=== PATIENT | male | born 1995 | race Caucasian/White ===

== ENCOUNTER 2016-07-16 13:34 | Emergency (ER) | payer OTHER ==
[2016-07-16] MEDS ORDERED: KETOROLAC 30 MG/1 ML SDV IVP ONE (13:39)
[2016-07-16] MEDS ORDERED: DEXAMETHASONE 10 MG/ML VIAL IVP ONE (13:39)
--- NOTE | 2016-07-16 13:39 | EDPHY ---
H & P Constitutional: Initial Vital Signs Temperature (C) 37.3 C 07/16/16 13:39 Heart Rate 94 07/16/16 13:39 Respiratory Rate 18 07/16/16 13:39 Blood Pressure 115/53 L 07/16/16 13:39 O2 Sat (%) 100 07/16/16 13:39 O2 Delivery Mode Room Air Allergies/Adverse Reactions: No Known Allergies Allergy (Verified 01/18/15 20:29) Home Medications: Medication Instructions Recorded Hydrocodone/APAP 5/325 [[place] 1 each PO Q4-6PRN PRN #15 tab 12/26/14 5/325 (*)] Cephalexin [Keflex (RX)] 500 mg PO TID #30 cap 07/16/16 Medical Decision Making ED Course/Re-evaluation: CHIEF COMPLAINT: Sore throat, cough. HISTORY OF PRESENT ILLNESS: The patient is a 21-year-old male who presents via EMS for sore throat since yesterday. He admits associated cough and vomiting. He describes an episode of near-syncope today but did not lose consciousness and did not hit his head. He denies fever, shortness of breath, or other complaints at this time. REVIEW OF SYSTEMS: A 10 point review of systems was performed and is negative with the exception of the elements mentioned in the history of present illness. PHYSICAL EXAM: HR, BP, O2 Sat, RR. Temp noted General Appearance: Alert, well hydrated, appropriate, and non-toxic appearing. Head: Atraumatic without scalp tenderness or obvious injury Eyes: Pupils equal, round, reactive to light and accommodation, EOMI, no trauma , no injection. Ears: Clear bilaterally, no perforation, normal landmarks Nose: Atraumatic, no rhinorrhea, clear. Throat: There are no lesions, normal tonsils, mucus membranes moist. Throat is severely erythematous. Neck: Supple, 2+ carotid upstroke, nontender, no lymphadenopathy. Respiratory: No retractions, no distress, no wheezes, and no accessory muscle use. Lungs are clear to auscultation bilaterally. Cardiovascular: Regular rate and rhythm, no murmurs, rubs, or gallops. Bilateral carotid, radial, dorsalis pedis, and posterior tibial pulses intact. Good capillary refill all extremities. Gastrointestinal: Abdomen is soft, nontender, non-distended, no masses, no rebound, no guarding, no peritoneal signs. Musculoskeletal: Normal active ROM of all extremities, atraumatic. Neurological: Alert, appropriate, and interactive. The patient has normal DTRs and non-focal cranial nerves, motor, sensory, and cerebellar exam. Skin: No rashes, good turgor, no nodules on palpation. Past medical history: Denies. Past surgical history: Denies. Family history: N/A. Social history: Lives in [place]. DIFFERENTIAL DIAGNOSIS: The differential diagnosis includes, but is not limited to: strep throat, pharyngitis, laryngitis, viral syndrome. MEDICAL DECISION MAKING: I met EMS on arrival and obtained a report from the ice cream server. This 21-year-old male is complaining of sore throat, cough, and vomiting since yesterday. On exam he has a severely erythematous throat. We will treat this as strep throat without obtaining a swab. Lab work is not necessary. An IV was established. 1gm IV Ceftriaxone administered along with 2L IV saline, 10mg IV Decadron, and 30mg IV Toradol. After medications he will be road tested prior to discharge. Departure - Departure Disposition: Home, Routine, Self-Care Clinical Impression: Dehydration Pharyngitis Qualifiers: Pharyngitis/tonsillitis etiology: unspecified etiology Qualified Code(s): J02.9 - Acute pharyngitis, unspecified Condition: Good Instructions: Pharyngitis (ED), Dehydration (ED) Additional Instructions: Take Keflex as prescribed. Drink plenty of fluids and be sure to get rest. Follow up with your primary care provider in the next 5-7 days if symptoms are not improving. You have been given the on-call primary care provider if you need one. Return for any serious worsening of condition. Referrals: Yenni Zarco MD [Medical Doctor] - As per Instructions Prescriptions: Cephalexin [Keflex (RX)] 500 mg PO TID #30 cap Report Scribed for: Yusuf Hartman Report Scribed by: Chris Marr Date of Report: 07/16/16 Time of Report: 13:37
[2016-07-16] MEDS ORDERED: NS 1,000 ML IV ONE ×2 (13:40)
[2016-07-16 13:41] VITALS: RESP 18
[2016-07-16 14:44] VITALS: BP 124/76; PULSE 106; TEMP 98.8; O2SAT 96
== END 2016-07-16 14:44 | disposition home or self-care (01) ==
LOC: EDUNIT#
DX: J02.9 Acute pharyngitis, unspecified (principal); E86.0 Dehydration
CPT/HCPCS: 96374; J0696; J1885